=== PATIENT | female | born 1970 | race Caucasian/White ===

== ENCOUNTER 2020-11-17 09:20 | Outpatient (CLI) | payer BC | END 2020-11-17 09:21 | disposition home or self-care (01) | LOC: CSHWCC 09:20 | PROVIDERS: ATTEND Nurse Practitioner Family | DX: T81.89XD Other complications of procedures, not elsewhere classified, subsequent encounter (principal); T81.31XD Disruption of external operation (surgical) wound, not elsewhere classified, subsequent encounter; M25.375 Other instability, left foot; M79.672 Pain in left foot | CPT/HCPCS: 99213; G0463 ==

== ENCOUNTER 2020-11-24 09:24 | Outpatient (CLI) | payer BC | END 2020-11-24 09:25 | disposition home or self-care (01) | LOC: CSHWCC 09:24 | PROVIDERS: ATTEND Nurse Practitioner Family | DX: T81.31XS Disruption of external operation (surgical) wound, not elsewhere classified, sequela (principal); T81.89XD Other complications of procedures, not elsewhere classified, subsequent encounter; M25.375 Other instability, left foot; M79.672 Pain in left foot | CPT/HCPCS: 99213; G0463 ==

== ENCOUNTER 2021-10-01 11:23 | Outpatient (CLI) | payer BC, MEDICARE | END 2021-10-01 11:24 | disposition home or self-care (01) | LOC: CSHMAMMO 11:23 | PROVIDERS: ATTEND Nurse Practitioner Family | DX: Z12.31 Encounter for screening mammogram for malignant neoplasm of breast (principal) | CPT/HCPCS: 77063; 77067 ==

== ENCOUNTER 2022-10-25 09:42 | Outpatient (CLI) | payer BC, MEDICARE | END 2022-10-25 09:43 | disposition home or self-care (01) | LOC: CSHMAMMO 09:42 | PROVIDERS: ATTEND Obstetrics & Gynecology | DX: Z12.31 Encounter for screening mammogram for malignant neoplasm of breast (principal) | CPT/HCPCS: 77063; 77067 ==